=== PATIENT | male | born 1975 | race Caucasian/White ===

== ENCOUNTER 2017-04-05 09:45 | Emergency (ER) | payer OTHER ==
[2017-04-05 10:00] VITALS: TEMP 97.9
--- NOTE | 2017-04-05 10:44 | C.PDOC ---
History Of Present Illness 41 year old patient presents to the ED complaining of lower back pain for the past month. Patient states the pain became worse since yesterday and he was unable to catch his breath. The pain starts in the coccyx region and radiates to bilateral gluteals. He thinks he may have injured it a while ago when lifting weights in the gym, but he is unsure. He rates the pain as 10 out of 10 , describes it as a spasm like sensation, and notes the pain is exacerbated by movement. Patient denies fever, chills, abdominal pain, numbness, weakness, incontinence, dysuria, or hematuria. Time Seen by Provider: 04/05/17 10:30 Chief Complaint (Nursing): Back Pain History Per: Patient History/Exam Limitations: no limitations Onset/Duration Of Symptoms: Worse Since (yesterday), Other (1 month) Current Symptoms Are (Timing): Still Present Quality Of Discomfort: "Pain" Severity: Severe Pain Scale Rating Of: 10 Associated Symptoms: None Exacerbating Factor(s): Movement Recent travel outside of the [place]: No Past Medical History Reviewed: Historical Data, Nursing Documentation, Vital Signs Vital Signs: Last Vital Signs Temp 97.9 F 04/05/17 09:57 Pulse 83 04/05/17 09:57 Resp 20 04/05/17 09:57 BP 137/80 04/05/17 09:57 Pulse Ox 96 04/05/17 11:28 Family History: States: Unknown Family Hx - Social History Hx Alcohol Use: Yes Hx Substance Use: No - Immunization History Hx Tetanus Toxoid Vaccination: No Hx Influenza Vaccination: No Hx Pneumococcal Vaccination: No Review Of Systems Except As Marked, All Systems Reviewed And Found Negative. Constitutional: Negative for: Fever, Chills Gastrointestinal: Negative for: Abdominal Pain Genitourinary: Negative for: Dysuria, Incontinence, Hematuria Musculoskeletal: Positive for: Back Pain (lower) Neurological: Negative for: Weakness, Numbness Physical Exam - Physical Exam Appears: Non-toxic, No Acute Distress, Other (obese) Skin: Warm, Dry Head: Atraumatic, Normacephalic Eye(s): bilateral: Normal Inspection Neck: Normal ROM, Supple Chest: Symmetrical Cardiovascular: Rhythm Regular Respiratory: Normal Breath Sounds, No Rales, No Rhonchi, No Wheezing Gastrointestinal/Abdominal: Soft, No Tenderness Back: Normal Inspection, No CVA Tenderness, No Vertebral Tenderness, Other ( pain with ROM) Extremity: Normal ROM Extremity: Bilateral: Atraumatic Neurological/Psych: Oriented x3, Normal Motor, Normal Sensation Gait: Steady ED Course And Treatment O2 Sat by Pulse Oximetry: 96 (room air) Pulse Ox Interpretation: Normal Progress Note: Plan: Motrin, Lidoderm 5%, Ultram Disposition Counseled Patient/Family Regarding: Diagnosis, Need For Followup, Rx Given - Disposition Referrals: [facility] [Outside] Disposition: HOME/ ROUTINE Disposition Time: 11:26 Condition: STABLE Prescriptions: diaZEpam [Valium] 5 mg PO TID #12 tab Ibuprofen [Motrin] 600 mg PO TID #15 tab Lidocaine 5% [Lidoderm] 1 ea TD DAILY #4 patch Instructions: Back Pain (ED) Forms: General Discharge Instructions, Work Excuse - Clinical Impression Clinical Impression: Low back strain - Scribe Statement The provider has reviewed the documentation as recorded by the Scribalia Gordon Provider Attestation: All medical record entries made by the Scribe were at my direction and personally dictated by me. I have reviewed the chart and agree that the record accurately reflects my personal performance of the history, physical exam, medical decision making, and the department course for this patient. I have also personally directed, reviewed, and agree with the discharge instructions and disposition.
[2017-04-05] MEDS ORDERED: Lidocaine 5% Patch TD ONE (10:50)
[2017-04-05] MEDS ORDERED: Lidocaine 5% Patch TD STA (10:53)
[2017-04-05 11:35] VITALS: BP 124/72; PULSE 72; RESP 18
[2017-04-05 11:36] VITALS: O2SAT 96
[2017-04-06] MEDS ORDERED: Lidocaine 5% Patch TD SCH (10:00)
== END 2017-04-05 11:35 | disposition home or self-care (01) ==
LOC: C.ER 09:45
DX: S39.012A Strain of muscle, fascia and tendon of lower back, initial encounter (principal); X58.XXXA Exposure to other specified factors, initial encounter; Y93.9 Activity, unspecified; Y92.9 Unspecified place or not applicable

== ENCOUNTER 2018-08-09 08:48 | Emergency (ER) | payer MEDICAID ==
[2018-08-09 09:18] VITALS: RESP 18; O2SAT 97
[2018-08-09 10:01] LABS: URINE BILIRUBIN NEGATIVE (NEGATIVE); URINE BLOOD NEGATIVE (NEGATIVE); URINE CLARITY Clear (Clear); URINE COLOR Yellow (YELLOW); URINE GLUCOSE (UA) NORMAL (Normal); URINE LEUKOCYTE ESTERASE NEG Leu/uL (Negative); URINE PROTEIN NEGATIVE (NEGATIVE); URINE UROBILINOGEN NORMAL mg/dL (0.2-1.0)
--- NOTE | 2018-08-09 10:28 | RAD ---
HISTORY: productive cough COMPARISON: No prior. TECHNIQUE: Chest PA and lateral FINDINGS: Examination limited by habitus. LUNGS: No focal consolidation. Please note that chest x-ray has limited sensitivity for the detection of pulmonary masses. PLEURA: No significant pleural effusion identified. No definite pneumothorax . CARDIOVASCULAR: The cardiomediastinal silhouette appears within normal limits of size. No atherosclerotic calcification present. OSSEOUS STRUCTURES: Mild degenerative changes of the spine. VISUALIZED UPPER ABDOMEN: Unremarkable. OTHER FINDINGS: None. IMPRESSION: No focal consolidation identified.
[2018-08-09] MEDS ORDERED: Amoxicillin-Clav 875-125 mg Tab PO STA (11:14)
[2018-08-09] MEDS ORDERED: Amoxicillin-Clav 875-125 mg Tab PO ONE (11:28)
--- NOTE | 2018-08-09 11:28 | C.PDOC ---
History Of Present Illness 42 year old male presents to the ER with a complaint of coughing for one month and feeling a clogging sensation to his left ear. Patient also reports having left flank pain that worsens with coughing and movement. Denies fever or chills. Time Seen by Provider: 08/09/18 09:20 Chief Complaint (Nursing): Cough, Cold, Congestion History Per: Patient History/Exam Limitations: no limitations Onset/Duration Of Symptoms: Days Current Symptoms Are (Timing): Still Present Recent travel outside of the [place]: No Past Medical History Reviewed: Historical Data, Nursing Documentation, Vital Signs Vital Signs: Last Vital Signs Temp 98.3 F 08/09/18 09:02 Pulse 84 08/09/18 09:02 Resp 18 08/09/18 09:02 BP 136/92 H 08/09/18 09:02 Pulse Ox 97 08/09/18 09:02 Family History: States: Unknown Family Hx - Social History Hx Alcohol Use: Yes Hx Substance Use: No - Immunization History Hx Tetanus Toxoid Vaccination: No Hx Influenza Vaccination: No Hx Pneumococcal Vaccination: No Review Of Systems Constitutional: Negative for: Fever, Chills ENT: Positive for: Ear Pain Respiratory: Positive for: Cough Gastrointestinal: Negative for: Nausea, Vomiting Musculoskeletal: Positive for: Other (Left flank pain) Physical Exam - Physical Exam Appears: Non-toxic Skin: Normal Color, Warm, Dry Head: Atraumatic, Normacephalic Eye(s): bilateral: Normal Inspection Ear(s): Left: TM Erythema, Right: Normal Nose: Normal Oral Mucosa: Moist Throat: Normal, No Erythema, No Exudate Neck: Normal, Supple Chest: Symmetrical, No Tenderness Cardiovascular: Rhythm Regular Respiratory: Normal Breath Sounds, No Rales, No Rhonchi, No Wheezing Gastrointestinal/Abdominal: Soft, No Tenderness Back: Other (Superficial left flank tenderness) Neurological/Psych: Oriented x3, Normal Speech ED Course And Treatment O2 Sat by Pulse Oximetry: 97 (Room air) Pulse Ox Interpretation: Normal - Other Rad CXR X-Ray: Viewed By Me, Read By Radiologist Interpretation: HISTORY: productive cough. COMPARISON: No prior. TECHNIQUE: Chest PA and lateral. FINDINGS: Examination limited by habitus. LUNGS: No focal consolidation. Please note that chest x-ray has limited sensitivity for the detection of pulmonary masses. PLEURA: No significant pleural effusion identified. No definite pneumothorax . CARDIOVASCULAR: The cardiomediastinal silhouette appears within normal limits of size. No atherosclerotic calcification present. OSSEOUS STRUCTURES: Mild degenerative changes of the spine. VISUALIZED UPPER ABDOMEN: Unremarkable. OTHER FINDINGS: None. IMPRESSION: No focal consolidation identified. Progress Note: CXR and UA ordered, results were negative. Patient started on augmentin and advised to follow up with PMD. Disposition - Disposition Disposition: HOME/ ROUTINE Disposition Time: 11:26 Condition: STABLE Additional Instructions: Follow up with your PMD within 1-2 days. Return to ED if feel worse. Prescriptions: Amoxicillin/Clavulanate [Augmentin 875 MG-125 MG] 1 tab PO BID #20 tab Ibuprofen [Motrin Tab] 600 mg PO Q8 #30 tab Benzonatate [Tessalon Perles] 2 tab PO TID #60 sgl Forms: [employer] (Kosovan), Work Excuse - Clinical Impression Clinical Impression: Otitis media, Cough - PA / CATECHIST / Resident Statement MD/DO has reviewed & agrees with the documentation as recorded. - Scribe Statement The provider has reviewed the documentation as recorded by the Scribalia Farmer All medical record entries made by the Bla[place]alia were at my direction and personally dictated by me. I have reviewed the chart and agree that the record accurately reflects my personal performance of the history, physical exam, medical decision making, and the department course for this patient. I have also personally directed, reviewed, and agree with the discharge instructions and disposition.
[2018-08-09 11:32] VITALS: BP 138/92; PULSE 86; TEMP 98.7
== END 2018-08-09 11:34 | disposition home or self-care (01) ==
LOC: C.ER 08:48
DX: H66.92 Otitis media, unspecified, left ear (principal); R05 Cough